=== PATIENT | female | born 1985 | race African-American/Black ===

== ENCOUNTER 2017-10-08 19:56 | Emergency (ER) | payer OTHER ==
[~2017-10-08] VITALS: Ht 167.6 cm; Wt 81.8 kg
[~2017-10-08 19:56] MED LIST: PRENATALS
[2017-10-08] MEDS ORDERED: ALBU8.5H8 IH (20:08)
[2017-10-08 20:25] VITALS: BP 135/83
== END 2017-10-08 21:24 | disposition home or self-care (01) ==
LOC: EMS 19:58
DX: S21.001A Unspecified open wound of right breast, initial encounter (principal); N61.0 Mastitis without abscess; J45.909 Unspecified asthma, uncomplicated; W45.8XXA Other foreign body or object entering through skin, initial encounter; Y93.89 Activity, other specified; Y92.89 Other specified places as the place of occurrence of the external cause; Y99.8 Other external cause status
CPT/HCPCS: 99283

== ENCOUNTER 2019-11-09 12:48 | Emergency (ER) | payer OTHER ==
[~2019-11-09] VITALS: Ht 167.6 cm; Wt 79.5 kg
[~2019-11-09 12:48] MED LIST changes: +ALBU8.5H8 IH; -PRENATALS
[2019-11-09] MEDS ORDERED: BUPIVACAINE HCL/PF 0.25% 10 ML VIAL INJ ONE (13:30)
[2019-11-09] MEDS ORDERED: LIDOCAINE 1% 10 ML VIAL INJ ONE (13:30)
[2019-11-09] MEDS ORDERED: PERTUSS(ACELL),DIPH,TET VAC/PF 0.5 ML VIAL IM ONE (13:30)
[2019-11-09] MEDS ORDERED: POVIDONE-IODINE 10% 15 ML SOLUTION UD TP ONE (13:30)
[2019-11-09] MEDS ORDERED: CEPHALEXIN MONOHYDRATE 500 MG CAPSULE PO ONE (15:30)
[2019-11-09 16:03] VITALS: BP 129/74
== END 2019-11-09 16:06 | disposition home or self-care (01) ==
LOC: EMS 12:50
DX: S99.922A Unspecified injury of left foot, initial encounter (principal); J45.909 Unspecified asthma, uncomplicated; W20.8XXA Other cause of strike by thrown, projected or falling object, initial encounter; Y93.89 Activity, other specified; Y92.89 Other specified places as the place of occurrence of the external cause; Y99.8 Other external cause status
CPT/HCPCS: 11730; 73660; 90471; 90715; 99283; J3490 ×2; 11760